=== PATIENT | male | born 1955 | race Caucasian/White ===

== ENCOUNTER → 2018-04-04 | Outpatient (CLI) | payer BC ==
[~2018-04-04] MED LIST: AEROCHAMBER MI1 EACH MC; LISINOPRIL20 MG PO; MEDROLDOSEPACK PO; NORCO 5-325 TA1 EAC1 PO; PREDNISONE 20 M20 M1 PO; PROAIR HFA8.5 GM INH; TUSSIONEX PENN473 ML PO; VENTOLIN HFA INH8 GM IH; XARELTO15 MG PO; ZOCOR20 MG PO; ZPAK PO
[2018-04-04 16:51] LABS: CREATININE 1.3 mg/dL (0.6-1.3)
== END ==
LOC: M.LAB 16:24 → M.MRI 17:30
PROVIDERS: Family Medicine
DX: I10 Essential (primary) hypertension (principal); R22.42 Localized swelling, mass and lump, left lower limb

== ENCOUNTER 2018-09-12 04:01 | Inpatient (IN) | payer BC ==
[~2018-09-12] VITALS: Ht 170.2 cm; Wt 115.7 kg
[~2018-09-12 04:01] MED LIST changes: -XARELTO15 MG PO
[2018-09-12 04:05] VITALS: BP 129/72
[2018-09-12 05:10] LABS: ABSOLUTE EOSINOPHILS 0.3 thou/uL (0.0-0.7); ABSOLUTE MONOCYTES 0.7 thou/uL (0.0-1.2); ABSOLUTE NEUTROPHILS 4.6 thou/uL (1.6-8.1); BASOPHILS 0.6 %; EOSINOPHILS 4.1 %; HEMATOCRIT 41.6 % (42.0-52.0); HEMOGLOBIN 14.2 gm/dL (14.0-18.0); LYMPHOCYTES 26.5 %; MCH 32.5 pg (26.0-34.0); MCHC 34.1 g/dL (28.0-37.0); MCV 95.1 fL (80.0-100.0); MONOCYTES 8.9 %; MPV 8.6 fl. (7.2-11.1); NUCLEATED RBCS 0 /100WBC; PLATELET COUNT* 171 thou/uL (150-400); POLYS 59.9 %; RBC 4.37 mil/uL (4.50-6.00); RDW-CV 13.7 % (10.5-14.5); WBC 7.6 thou/uL (4.0-11.0)
[2018-09-12 05:13] LABS: ALBUMIN 3.3 g/dL (3.4-5.0); ALKALINE PHOSPHATASE 88 U/L (46-116); ANION GAP 6 mmol/L (7-16); BUN 16 mg/dL (7-18); CALCIUM 8.7 mg/dL (8.5-10.1); CHLORIDE 104 mmol/L (98-107); CO2 27 mmol/L (21-32); CREATININE 1.3 mg/dL (0.6-1.3); GLUCOSE 162 mg/dL (70-99); INR 1.1; PROTIME 10.8 Seconds (9.20-11.50); SGOT 20 U/L (15-37); SGPT 30 U/L (30-65); SODIUM 137 mmol/L (136-145); TOTAL BILIRUBIN 0.4 mg/dL (<0.1-1.0); TOTAL PROTEIN 6.6 g/dL (6.4-8.2); TROPONIN-I LEVEL <0.06 ng/mL (<0.06)
[2018-09-12 08:07] VITALS: BP 135/101
[2018-09-12 12:32] VITALS: BP 137/92
--- NOTE | 2018-09-12 14:47 | NUR ---
MET WITH PT TO DISCUSS HOME SITUATION/DC PLANNING. PT LIVES WITH , IS INDEPENDENT AND ACTIVE. USES NO EQUIPMENT. PT WORKS FOR [employer]. WAS ASKED TO CALL IN SCRIPT FOR XARELTO 15MG BID X21 DAYS THEN 20MG DAILY FOR 6MO, CALLED INTO [facility] PER PT REQUEST. PRIOR AUTH DONE AND PT'S COST OIS $12/MONTH. SHOULD BE FILLED AND READY FOR PT, HE IS AWARE. DR SAMPSON UPDATED. WILL FOLLOW
[2018-09-12 14:48] VITALS: BP 137/92
--- NOTE | 2018-09-12 15:01 | 2DMMODE ---
[place] [address] 2 D/M-MODE ECHOCARDIOGRAM Name: ARTHUR CHEN JR Room: [address] IN [facility]#: [id number] Admission: 09/12/18 Attend Phys: Flower Macedo, Discharge: Date of : 51 Date of Service: 09/12/18 1500 Report #: [id number] THIS REPORT FOR: //name// ADDENDUM APPROVED REPORT Study performed: 09/12/2018 09:46:15 EXAM: Comprehensive 2D, Doppler, and color-flow Echocardiogram Patient Location: In-Patient Room #: 230 Status: routine BSA: 2.24 HR: 71 bpm BP: 135/101 mmHg Rhythm: NSR Other Information Study Quality: Good Indications Pulmonary Embolism 2D Dimensions IVSd: 9.60 (7-11mm) LVOT Diam: 19.94 (18-24mm) LVDd: 44.27 mm PWd: 9.16 (7-11mm) Ascending Ao: 31.81 (22-36mm) LVDs: 24.42 (25-40mm) Aortic Root: 32.35 mm Volumes Left Atrial Volume (Systole) LA ESV Index: 13.80 mL/m2 Aortic Valve AoV Peak Eloy.: 1.69 m/s AO Peak Gr.: 11.38 mmHg LVOT Max P.01 mmHg AO Mean Gr.: 5.64 mmHg LVOT Mean P.94 mmHg LVOT Max V: 1.42 m/s AO V2 VTI: 32.44 cm LVOT Mean V: 0.91 m/s JUDD (VTI): 2.89 cm2 LVOT V1 VTI: 29.99 cm Mitral Valve E/A Ratio: 1.32 MV Decel. Time: 215.48 ms MV E Max Eloy.: 1.03 m/[place] [address] 2 D/M-MODE ECHOCARDIOGRAM Name: ARTHUR CHEN JR Room: [address] [facility]#: [id number] Admission: 09/12/18 Attend Phys: Flower Macedo, Discharge: Date of : 51 Date of Service: 09/12/18 1500 Report #: [id number] MV PHT: 62.49 ms MVA (PHT): 3.52 cm2 TDI E/Lateral E': 5.72 E/Medial E': 5.72 Medial E' Eloy.: 0.18 m/s Lateral E' Eloy.: 0.18 m/s Pulmonary Valve PV Peak Eloy.: 0.96 m/s PV Peak Gr.: 3.68 mmHg Tricuspid Valve RAP Estimate: 5.00 mmHg TR Peak Gr.: 39.16 mmHg RVSP: 44.00 mmHg PA Pressure: 44.00 mmHg Left Ventricle The left ventricle is normal size. There is normal LV segmental wall motion. There is normal left ventricular wall thickness. Left ventricular systolic function is normal. LVEF is 60-65%. The left ventricular diastolic function is normal. Right Ventricle The right ventricle is normal size. The right ventricular systolic function is normal. Atria The left atrium size is normal. The right atrium size is normal. Aortic Valve The aortic valve is normal in structure. No aortic regurgitation is present. There is no aortic valvular stenosis. Mitral Valve The mitral valve is normal in structure. There is no mitral valve regurgitation noted. No evidence of mitral valve stenosis. Tricuspid Valve The tricuspid valve is normal in structure. Trace tricuspid regurgitation. The RVSP is 40-45 mmHg. Pulmonic Valve The pulmonary valve is normal in structure. There is no [place]monic [place] [address] 2 D/M-MODE ECHOCARDIOGRAM Name: ARTHUR CHEN JR Room: [address]#: [id number] Admission: 09/12/18 Attend Phys: Flower Macedo, Discharge: Date of : 51 Date of Service: 09/12/18 1500 Report #: [id number] Great Vessels The aortic root is normal in size. IVC is not well visualized. Pericardium There is no pericardial effusion. <Conclusion> The left ventricle is normal size. There is normal left ventricular wall thickness. Left ventricular systolic function is normal. LVEF is 60-65%. The left ventricular diastolic function is normal. Trace tricuspid regurgitation. The RVSP is 40-45 mmHg. <ELECTRONICALLY SIGNED> By: Kvng Alexandra MD, FACC 09/12/18 1500 1500 1500 Kvng Alexandra MD, FACC /INF
[2018-09-12 16:33] VITALS: BP 132/72
--- NOTE | 2018-09-12 18:06 | EKG ---
[place] [address] ELECTROCARDIOGRAM REPORT Name: ARTHUR CHEN JR Room: [address] ADM IN .R.#: [id number] Admission: 09/12/18 Attend Phys: Flower Macedo MD Discharge: Date of : 51 Report #: [id number] THIS REPORT FOR: //name// [facility] ED Test Date: 2018-09-12 Test Time: 04:22:19 Pat Name: ARTHUR CHEN Department: Room: [facility] Gender: M Dragger Out: : 1955 Requested By: Rosa M Wu Order Number: [id number] MD: Galindo Coronado Measurements Intervals [place] Rate: 73 P: 39 [place]: 170 QRS: 16 QRSD: 81 T: 27 QT: 389 QTc: 429 Interpretive Statements Sinus rhythm No previous ECG available for comparison Electronically Signed On 09-12-2018 18:06:45 CDT by Galindo Coronado [email or web address] <ELECTRONICALLY SIGNED> By: Galindo Coronado MD, [facility] 09/12/18 1806 0422 0422 Galindo Coronado MD, FACC /EPI
--- NOTE | 2018-09-12 18:34 | NUR ---
VSS, ASSUMED CARE IN THE AM, ASSESSMENT PERFORMED AND CHARTED, FALL PRECAUTIONS IN PLACE AND CALL LIGHT IN REACH, PT IS UP AD RAMIRO AND IS ON RA, TRACING SR ON THE MONITOR, HE STATES PAIN IN HIS RIGHT LOWER LEG, LEG IS SWOLLEN AND WARM TO TOUCH, DVT HAS BEEN FOUND, PT GOAL IS TO LOWER SWELLING AND PAIN, HOURLY ROUNDS COMPLETED AND WILL FOLLOW WITH PLAN OF CARE.
[2018-09-12 20:00] VITALS: BP 117/75
[2018-09-13] VITALS: BP 108/70
[2018-09-13 04:00] VITALS: BP 115/71
[2018-09-13 05:04] LABS: HEMATOCRIT 40.4 % (42.0-52.0); HEMOGLOBIN 13.6 gm/dL (14.0-18.0); MCHC 33.7 g/dL (28.0-37.0); MCV 94.9 fL (80.0-100.0); MPV 8.2 fl. (7.2-11.1); RBC 4.26 mil/uL (4.50-6.00); RDW-CV 14.1 % (10.5-14.5); WBC 7.4 thou/uL (4.0-11.0)
--- NOTE | 2018-09-13 05:13 | NUR ---
ASSUMED PT CARE AT 1930. ASSESSMENT COMPLETED CHARTED. ABLE TO MAKE NEEDS KNOWN, UP AD RAMIRO, NOT WANTING PAIN MEDICATION FOR RIGHT LEG PAIN FROM DVT. RESTING IN BED THROUGHOUT THE NIGHT WITH NO COMPLAINTS. WILL CONTINUE TO MONITOR.
[2018-09-13 05:15] LABS: CALCIUM 8.6 mg/dL (8.5-10.1); CREATININE 1.2 mg/dL (0.6-1.3); POTASSIUM 4.3 mmol/L (3.5-5.1)
[2018-09-13 05:19] LABS: ALBUMIN 3.3 g/dL (3.4-5.0); MAGNESIUM 2.1 mg/dL (1.8-2.4); TOTAL BILIRUBIN 0.3 mg/dL (<0.1-1.0); TOTAL PROTEIN 6.4 g/dL (6.4-8.2)
[2018-09-13 07:44] VITALS: BP 119/69
[2018-09-13 10:19] LABS: CHOLESTEROL 140 mg/dL (<200); HDL CHOLESTEROL 39 mg/dL (>40); LDL CHOLESTEROL 61 mg/dL (<100); TC:HDL 3.6 Ratio (Not establshd); TRIGLYCERIDE 203 mg/dL (<150); VLDL 41 mg/dL (<40)
[2018-09-13 10:26] LABS: SERUM ASSESSMENT Clear
[2018-09-13 12:10] VITALS: BP 123/64
[2018-09-13 16:00] VITALS: BP 126/67
--- NOTE | 2018-09-13 18:24 | NUR ---
ASSESSMENT COMPLETED REFER TO COMPUTER CHARTING. 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 PATIENT REPORTING NO PAIN, NAUSEA OR SHORTNESS OF BREATH. BED IN LOW AND LOCKED POSITION. CALL LIGHT WITHIN REACH. IV SALINE LOCKED. ON ROOM AIR. PATIENT UP SELF. WILL CONTINUE TO MONITOR THIS SHIFT.
[2018-09-13 20:00] VITALS: BP 138/69
[2018-09-14] VITALS: BP 128/71
[2018-09-14 02:05] LABS: GLYCOHEMOGLOBIN (HGB A1C) 7.7 % (4.8-5.6)
--- NOTE | 2018-09-14 03:21 | NUR ---
ASSUMED PT CARE AT 1930. ASSESSMENT COMPLETED CHARTED. ABLE TO MAKE NEEDS KNOWN. NO C/O PAIN OR DISCOMFORT. UP AD RAMIRO, PT A LITTLE UPSET HE WAS NOT ABLE TO GO HOME TODAY BUT UNDERSTANDS FOR THE SAKE OF PRECAUTION. RIGHT LEG EDEMA WENT DOWN FROM YESTERDAY. WILL CONTINUE TO MONITOR.
[2018-09-14 03:58] VITALS: BP 142/80
[2018-09-14 08:00] VITALS: BP 123/70
[2018-09-14] MEDS ORDERED: XARELTO15 MG PO (09:30)
[2018-09-14 09:31] VITALS: BP 137/92
== END 2018-09-14 10:37 | disposition home or self-care (01) | DRG 299 ==
LOC: M.ERS 04:01 → M.TBA-ER 06:35 → M.2W 06:35
PROVIDERS: Emergency Medicine; Internal Medicine; ADMIT Internal Medicine
DX: I82.431 Acute embolism and thrombosis of right popliteal vein (principal); I26.99 Other pulmonary embolism without acute cor pulmonale; I10 Essential (primary) hypertension; Z88.0 Allergy status to penicillin; Z79.899 Other long term (current) drug therapy